=== PATIENT | male | born 1960 | race Two or more races ===

== ENCOUNTER → 2024-11-15 | Outpatient (CLI) | payer MEDICAID, SELFPAY ==
--- NOTE | 2024-11-15 12:56 | XR_ITS ---
Examination: PA lateral chest 2 views TECHNIQUE: Upright PA lateral chest 2 views Exam date and time: November 07, 2024 1342 hours INDICATIONS: Abnormal weight loss and chest pain over one year FINDINGS: Normal heart size Lungs are clear Moderate thoracic spondylosis IMPRESSION: No active disease
== END | disposition home or self-care (01) ==
PROVIDERS: PCP Family Medicine; Referring Provider Family Medicine; Visit Provider Family Medicine
DX: R63.4 Abnormal weight loss (principal); R07.9 Chest pain, unspecified
CPT/HCPCS: 71046

== ENCOUNTER 2024-12-31 00:35 | Emergency (ER) | payer MEDICAID, SELFPAY ==
[2024-12-31 00:36] VITALS: BMI 25.7
--- NOTE | 2024-12-31 00:37 | EKG_ITS ---
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
[2024-12-31 01:14] VITALS: BP 138/82; PULSE 64; RESP 18; TEMP 36.8; O2SAT 96
[2024-12-31] MEDS: DIAZEPAM 5 MG TABLET 10 MG PO (01:55)
--- NOTE | 2024-12-31 02:42 | EDNOTE_ITS ---
ED Chest Pain RME/HPI General Chief Complaint: Chest Pain Stated Complaint: CHEST PRESSURE Time Seen by Provider: 12/31/24 01:44 Arrival date/time: 12/31/24 00:35 64M with no significant PMH presents to ED with 2 days of chest pressure. Patient denies URI symptoms and SOB. Patient states he's recently had increased legal and family troubles including yesterday, entire family except for him went on vacation. He wasn't allowed to go. Patient denies SI/HI. Limitations: no limitations Related Data Allergies Allergy/AdvReac Type Severity Reaction Status Date / Time NKA* Allergy Uncoded 12/09/22 05:16 Review of Systems Review of Systems Systems Reviewed: All systems reviewed, normal except as documented Constitutional Constitutional: Reports system reviewed and no additional complaints, except as documented, Denies fever(s) and Denies headache(s) ENT Ears, Nose, Mouth, and Throat: Denies disequilibrium and Denies headache(s) Cardiovascular Cardiovascular: Reports system reviewed and no additional complaints, except as documented, Reports as per HPI, Reports chest pain (pressure) and Denies dyspnea Respiratory Respiratory: Reports system reviewed and no additional complaints, except as documented, Denies cough and Denies dyspnea Gastrointestinal Gastrointestinal: Reports system reviewed and no additional complaints, except as documented, Denies abdominal pain, Denies nausea and Denies vomiting Neurologic Neurologic: Reports system reviewed and no additional complaints, except as documented, Denies confusion, Denies disequilibrium and Denies headache(s) Psychiatric Psychiatric: Denies confusion Past Medical History Social History SMOKING STATUS: Never smoker ED Exam General Limitations: Present no limitations General appearance: Present alert and anxious Head Head exam: Present atraumatic Eye Eye exam: Present normal appearance, PERRL and EOMI ENT ENT exam: Present normal exam, normal oropharynx and mucous membranes moist Neck Neck exam: Present normal inspection, full ROM and trachea midline Chest Chest inspection: Present normal inspection and symmetric chest wall rise Respiratory Respiratory exam: Present normal lung sounds bilaterally Cardiovascular Cardiovascular exam: Present regular rate, normal rhythm and normal heart sounds Abdominal Exam Abdominal exam: Present soft and normal bowel sounds Extremities Exam Extremities exam: Present normal inspection and full ROM Back Exam Back exam: Present normal inspection and full ROM Neurological Exam Neurological exam: Present alert, oriented X3 and CN II-XII intact Psychiatric Psychiatric exam: Present normal affect and normal mood Skin Skin exam: Present warm, dry, intact and normal color Course Quality Measures none Orders Category Date Time Status EKG (ED ONLY) *Do not use* NOW Care 12/31/24 00:37 Completed EKG (ED Only) Stat Exams 12/31/24 00:37 Draft Diazepam [Valium] Med 12/31/24 01:45 Discontinued 10 mg PO X1 ONE Vital Signs Vital signs: Vital Signs Temperature 98.3 F 12/31/24 01:14 Pulse Rate 64 12/31/24 01:14 Respiratory Rate 18 12/31/24 01:14 Blood Pressure 138/82 H 12/31/24 01:14 Pulse Oximetry (%) 96 12/31/24 01:14 Oxygen Delivery Method Room Air 12/31/24 01:14 O2 at 96% on RA and WNLs Chest Pain MDM Narrative MDM Narrative:: 64M with no significant PMH presents to ED with 2 days of chest pressure. Patient denies URI symptoms and SOB. Patient states he's recently had increased legal and family troubles including yesterday, entire family except for him went on vacation. He wasn't allowed to go. Patient denies SI/HI. Physical exam reveals clear lungs. RRR. Patient is afebrile, alert, but anxious. EKG is NSR. Likely anxiety reaction. Patient data External records reviewed:: [facility] previous records Clinical information provided by:: patient Social determinants that could affect healthcare access:: none Patient has the following chronic illnesses:: none How is presenting disease/condition affected by chronic disease/condition?: no chronic disease Evaluation data The following diagnostics were reviewed and interpreted by me:: EKG tracing(s) Lab and/or radiology exams considered but not ordered:: ordered Interpretation Summary: above Medications / Prescriptions Medications or Prescriptions considered but not ordered:: ordered Medication administrations:: Medication Administration History Discontinued Medications Diazepam (Diazepam 5 Mg Tablet) 10 mg PO X1 ONE Stop: 12/31/24 01:46 Last Admin: 12/31/24 01:55 Dose: 10 mg Documented By: SAV perry Consultations Consultation(s) initiated? (list below): No Diagnosis Chest Pain Differential Diagnosis: fracture of rib, pneumothorax, stable angina, unstable angina pectoris, atypical chest pain, st elevation myocardial infarction, costochondritis, chest pain, biliary colic and other (anxiety due to stress reaction, GERD) Most likely diagnosis given after review of the tests above:: anxiety due to stress reaction Admission Indicated Admission indicated?: not indicated Admission Request Was there a request for admission?: No Disposition Plan Disposition Plan: Discharge Discharge Attestation Discharge Attestation: The patient and all family members were given an opportunity to ask questions and understood the discharge instructions. Discharge instructions specifically effects, indications for sooner follow up or return to the emergency department, and the expected course of current diagnosis. Patient condition: Stable Discharge Plan Plan Patient Disposition: HOME (Self Care) Disposition Comment: Stable Problem List Clinical Impression: Anxiety in acute stress reaction Patient/Caregiver Discharge Instructions Education Materials: Your Body's Response to Anxiety Additional Instructions: Please follow-up with PCP within 24-48 hours and return immediately if symptoms worsen. Print Language: Greenlandic Stand Alone Forms: Patient Portal Info Letter LAURI/KENYETTA Supervising Physician ANGEL Supervising Physician: Dr. Beltrán
== END 2024-12-31 02:09 | disposition home or self-care (01) ==
LOC: SERX 03:55
PROVIDERS: Emergency Provider Emergency Medicine; PCP Family Medicine
DX: F41.9 Anxiety disorder, unspecified (principal); F43.0 Acute stress reaction
CPT/HCPCS: 93005; 99283; A9270

== ENCOUNTER 2025-05-10 12:15 | Day surgery (SDC) | payer MEDICAID, SELFPAY ==
--- NOTE | 2025-05-10 11:16 | EKG_ITS ---
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
[2025-05-10 12:42] VITALS: BP 128/77; PULSE 66; RESP 13; TEMP 36.5; O2SAT 97; BMI 24.8
[2025-05-10] MEDS: RINGERS LACTATED 1000 ML 1,000 ML 20 ML IV (13:10)
[2025-05-10 14:10] LABS: Alanine Aminotransferase 25 U/L (10-49); Albumin, Serum 4.5 gm/dL (3.4-4.8); Albumin/Globulin Ratio 1.8 (1.2-2.2); Alkaline Phosphatase 94 U/L (46-116); Anion Gap 9 (7-16); Aspartate Amino Transferase 27 U/L (0-34); BUN/Creatinine Ratio 18 Ratio (12-20); Bilirubin,Total 2.6 mg/dL (0.3-1.2); Blood Urea Nitrogen 18 mg/dL (9-23); Calcium 8.9 mg/dL (8.3-10.6); Calcium (Corrected) 8.9 mg/dL (8.5-10.1); Carbon Dioxide 28.0 mMol/L (20.0-31.0); Chloride 105 mMol/L (98-107); Creatinine (Component) 1.0 mg/dL (0.6-1.3); Estimated Creatinine Clearance 68.2 mL/min (>60); Globulin 2.5 gm/dL (2.3-3.5); Glucose 91 mg/dL (74-106); Osmolality,Calculated 285 (275-295); Potassium 3.5 mMol/L (3.4-5.1); Sodium 142 mMol/L (136-145); Total Protein 7.0 gm/dL (5.7-8.2); eGFR > 60 See Note
[2025-05-10 15:33] VITALS: BP 112/75; PULSE 60; RESP 16; TEMP 36.5; O2SAT 98
--- NOTE | 2025-05-10 15:33 | SUR.PHASEII ---
1533: Pt. AAOx4, vitals stable, breathing unlabored, no complaint of pain or nausea, no dressing in place, no active bleed noted, report received from MD Licona and Amanda HILL.
[2025-05-10 15:38] VITALS: BP 131/79; PULSE 66; RESP 16; TEMP 36.4; O2SAT 98
[2025-05-10 15:43] VITALS: BP 127/80; PULSE 55; RESP 14; TEMP 36.3; O2SAT 98
[2025-05-10 15:48] VITALS: BP 135/88; PULSE 58; RESP 15; TEMP 36.3; O2SAT 99
[2025-05-10 16:04] VITALS: BP 139/80; PULSE 63; RESP 19; TEMP 36.2; O2SAT 99
--- NOTE | 2025-05-10 16:15 | SUR.PHASEII ---
1615: Pt. AAOx4, vitals stable, breathing unlabored, no complaint of pain or nausea, no dressing in place, no active bleed noted, pt. tolerated sips of water well, pt. able to pass gas, gave discharge instructions to the pt. and his ride, both verbalized understanding and had no further questions. Pt. ambulated to wheelchair with steady gait and no assist, no complications. Pt. left with all personal belongings.
== END 2025-05-10 16:15 | disposition home or self-care (01) ==
LOC: S2EX 17:06
PROVIDERS: Anesthesiology; PCP Family Medicine; Referring Provider Internal Medicine Gastroenterology; Visit Provider Internal Medicine Gastroenterology
PROC: (CPT 43239; principal; 2025-05-10 15:15)
PROC: 0DJD8ZZ Inspection of Lower Intestinal Tract, Via Natural or Artificial Opening Endoscopic (ICD-10-PCS; CPT 45378; 2025-05-10 15:15)
DX: K64.9 Unspecified hemorrhoids (principal); K57.30 Diverticulosis of large intestine without perforation or abscess without bleeding; I10 Essential (primary) hypertension; Z01.810 Encounter for preprocedural cardiovascular examination; K31.89 Other diseases of stomach and duodenum
CPT/HCPCS: 45380; 36415; 80053; 93005; J7120